=== PATIENT | male | born 1995 | race Caucasian/White ===

== ENCOUNTER 2019-05-09 09:17 | Emergency (ER) | payer OTHER ==
[~2019-05-09] VITALS: Ht 162.6 cm; Wt 67.8 kg
[~2019-05-09 09:17] MED LIST: BACI28.34 TOP; IBUP800T48 PO; SELE118S2 TOP
[2019-05-09 09:30] VITALS: Ht 162.6 cm; Wt 67.8 kg
[2019-05-09] MEDS ORDERED: IBUPROFEN 800 MG TAB PO ONE (10:00)
[2019-05-09] MEDS ORDERED: BACITRACIN 0.5%/ZINC 28.35 GM OINT TOP ONE (10:00)
== END 2019-05-09 10:48 | disposition home or self-care (01) ==
LOC: FTE 09:17
DX: T23.112A Burn of first degree of left thumb (nail), initial encounter (principal); T23.122A Burn of first degree of single left finger (nail) except thumb, initial encounter; X12.XXXA Contact with other hot fluids, initial encounter; Y92.9 Unspecified place or not applicable
CPT/HCPCS: 16000; Z7502; Z7610